=== PATIENT | male | born 1985 | race Two or more races ===

== ENCOUNTER 2023-11-25 21:52 | Emergency (ER) | payer OTHER ==
[~2023-11-25] VITALS: Ht 165.1 cm; Wt 81.6 kg
[2023-11-25] MEDS ORDERED: ORPHENADRINE CITRATE 30 MG/ML AMPUL IM STA (23:48)
[2023-11-25] MEDS ORDERED: KETOROLAC TROMETHAMINE 30 MG VIAL IM STA (23:48)
[2023-11-26] MEDS ORDERED: DICLOFENAC SODI75 MG PO (01:11)
[2023-11-26] MEDS ORDERED: NORFLEX100MG PO (01:11)
== END 2023-11-26 01:37 | disposition home or self-care (01) ==
LOC: ER 21:53
DX: S39.012A Strain of muscle, fascia and tendon of lower back, initial encounter (principal); X58.XXXA Exposure to other specified factors, initial encounter; Y93.89 Activity, other specified; Y92.89 Other specified places as the place of occurrence of the external cause; Y99.8 Other external cause status